=== PATIENT | female | born 1965 | race Caucasian/White ===

== ENCOUNTER → 2016-09-28 | Outpatient (CLI) | payer BC ==
[2014-01-04 11:16] VITALS: BP 135/87
[~2016-09-28] MED LIST: CYCL10TA2 PO; CYCL5TAB PO; FAMO40TA4 PO; FLUO40CA9 PO; HYDR-2762 PO; HYDR-971 PO; IBUP-1060 PO; LEVO75TA5 PO; MELO15TA23 PO
--- NOTE | 2016-09-28 16:12 | KCIC ---
LEFT ELBOW AP LATERAL Clinical Indication: Left elbow injury. Comparison: None. Findings: Sensitivity decreased without third view. There is no acute fracture or dislocation. No evidence of joint effusion. There is no radiopaque foreign body. The soft tissues are normal. IMPRESSION: No acute fracture or dislocation. Electronically signed by: Raheem Cook MD (09/28/2016 4:09 PM)
--- NOTE | 2016-09-28 16:19 | KCIC ---
ANKLE RIGHT 3V, FOOT RIGHT 3V Clinical Indication: Ankle and foot pain, swelling, and tingling after a fall 09/26. Comparison: None. Findings: Medial and lateral soft tissue swelling of the ankle. Ankle mortise is intact. There is no acute fracture. No joint effusion of the ankle seen. Pes cavus is noted. Mild dorsal soft tissue swelling. There is metatarsus primus varus and hallux valgus. Bipartite medial sesamoid. There is soft tissue swelling medial to the first MTP joint. Flattening of the medial first metatarsal head may be inflammatory or postsurgical. Question juxta-articular erosion. No acute fracture is identified. The mineralization is normal. IMPRESSION: 1. No acute fracture. 2. Medial and lateral ankle and dorsal foot soft tissue swelling. 3. Metatarsus primus varus and hallux valgus. 4. Soft tissue swelling medial to the first MTP joint. Gout in the differential. Electronically signed by: Raheem Cook MD (09/28/2016 4:16 PM)
== END | disposition home or self-care (01) ==
LOC: KCIC 14:08
PROVIDERS: ATTEND Family Medicine
DX: S99.911A Unspecified injury of right ankle, initial encounter (principal); S59.902A Unspecified injury of left elbow, initial encounter; M79.89 Other specified soft tissue disorders; X58.XXXA Exposure to other specified factors, initial encounter; Y93.89 Activity, other specified; Y92.89 Other specified places as the place of occurrence of the external cause; Y99.8 Other external cause status
CPT/HCPCS: 73070; 73610; 73630

== ENCOUNTER → 2017-01-17 | Outpatient (CLI) | payer BC ==
[2014-01-04 11:16] VITALS: BP 135/87
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
== END | disposition home or self-care (01) ==
LOC: KCIC 10:03
PROVIDERS: ATTEND Family Medicine
DX: S99.922A Unspecified injury of left foot, initial encounter (principal); X58.XXXA Exposure to other specified factors, initial encounter; Y93.89 Activity, other specified; Y92.89 Other specified places as the place of occurrence of the external cause; Y99.8 Other external cause status
CPT/HCPCS: 73630

== ENCOUNTER 2017-09-16 19:43 | Emergency (ER) | payer BC | END 2017-09-16 21:35 | disposition home or self-care (01) | LOC: ER 21:35 | DX: M13.862 Other specified arthritis, left knee (principal); K21.9 Gastro-esophageal reflux disease without esophagitis; E03.9 Hypothyroidism, unspecified; Z88.5 Allergy status to narcotic agent; Z88.8 Allergy status to other drugs, medicaments and biological substances; Z88.6 Allergy status to analgesic agent | CPT/HCPCS: 29505; 73562; 99284 ==

== ENCOUNTER → 2018-01-08 | Outpatient (CLI) | payer BC ==
[2017-09-16 19:45] VITALS: BP 120/77
[~2018-01-08] MED LIST changes: +CELE200C PO; +DULO30CA2 PO; +GABA600T PO; +LEVO88TA4 PO; +NORT25CA PO; +OMEP40CA5 PO; +TRAM50TA PO; +TRAZ-85 PO
[2018-01-08 10:23] LABS: BASO # 0.1 x10^3/uL (0.0-0.2); BASO % 1 % (0-3); EOS # 0.3 x10^3/uL (0.0-0.7); EOS % 4 % (0-3); HEMATOCRIT 41.7 % (36.0-47.0); HEMOGLOBIN 14.9 g/dL (12.0-15.5); LYMPH # 2.1 x10^3/uL (1.0-4.8); LYMPH % 28 % (24-48); MEAN CORPUSCULAR HEMOGLOBIN 33 pg (25-35); MEAN CORPUSCULAR HGB CONC 36 g/dL (31-37); MEAN CORPUSCULAR VOLUME 93 fL (79-100); MONO # 0.5 x10^3/uL (0.0-1.1); MONO % 6 % (0-9); NEUT # 4.5 x10^3uL (1.8-7.7); NEUT % 61 % (31-73); PLATELET COUNT 275 x10^3/uL (140-400); RED BLOOD COUNT 4.46 x10^6/uL (3.50-5.40); RED CELL DISTRIBUTION WIDTH 12.5 % (11.5-14.5); WHITE BLOOD COUNT 7.3 x10^3/uL (4.0-11.0)
[2018-01-08 10:29] LABS: CALCIUM 9.5 mg/dL (8.5-10.1); GFR 58.7; POTASSIUM 4.2 mmol/L (3.5-5.1)
[2018-01-08 10:37] LABS: PROTHROMBIN TIME PATIENT 12.6 SEC (11.7-14.0)
[2018-01-08 11:43] LABS: BILIRUBIN,URINE NEGATIVE (NEG); CLARITY,URINE CLEAR; COLOR,URINE YELLOW; NITRITE,URINE NEGATIVE (NEG); PH,URINE 6.5; PROTEIN,URINE NEGATIVE (NEG-TRACE); UROBILINOGEN,URINE 0.2 mg/dL (0.2 mg/dL)
[2018-01-08 12:06] LABS: BACTERIA,URINE 0 /HPF (0-FEW); RBC,URINE 0 /HPF (0-2); SQUAMOUS EPITHELIAL CELL,UR FEW /LPF; WBC,URINE 0 /HPF (0-4)
--- NOTE | 2018-01-08 13:38 | EKG ---
[facility] [address] [place] [address] Test Date: 2018-01-08 Test Time: 13:30:50 Pat Name: OMER BARRIENTOS Department: Room: Gender: F Skewer Up: : 1965 Requested By: STEFFI NICOLE Order Number: [id number] Reading MD: Wei Phillips MD Measurements Intervals [place] Rate: 83 P: 48 LA: 148 QRS: 24 QRSD: 90 T: 36 QT: 360 QTc: 429 Interpretive Statements SINUS RHYTHM Electronically Signed On 01-10-2018 12:02:16 CDT by Wei Phillips MD
--- NOTE | 2018-01-08 14:52 | RAD ---
AP and Lateral Views of the Chest 01/08/2018 2:05 PM Indication: PRE-OP CHEST LT KNEE SURGERY 01/30 Comparison: None Findings: There is no focal consolidation or infiltrate identified. The cardiomediastinal silhouette is within normal limits. There is no evidence of pneumothorax or pleural effusion. Postsurgical changes to the cervical spine noted. No acute osseous abnormalities are identified. Impression: No evidence of acute cardiopulmonary process. Electronically signed by: Trever Bravo MD (01/08/2018 2:49 PM) [id number]
== END | disposition home or self-care (01) ==
LOC: SURGPAT 13:08
PROVIDERS: ATTEND Orthopaedic Surgery
DX: Z01.818 Encounter for other preprocedural examination (principal); M17.12 Unilateral primary osteoarthritis, left knee
CPT/HCPCS: 36415; 71046; 80048; 81001; 82040; 85025; 85610; 85651; 85730; 87641; 93005

== ENCOUNTER 2018-01-30 06:50 | Inpatient (IN) | payer BC ==
[2018-01-30] VITALS (7 sets, daily range): BP systolic 110–140; BP diastolic 75–90
[~2018-01-30] VITALS: Ht 170.2 cm; Wt 97.5 kg
[~2018-01-30 06:50] MED LIST changes: +CELECOXIB 100 MG CAPSULE. PO PRN; +MORPHINE SULFATE 5 MG, KETOROLAC 30MG VIAL 30 MG, ROPIVacaine 0.5% PF 60 ML, EPINEPHrin... INT ART ONE; +TRANEXAMIC ACID 1,000 MG in IV NS 50ML -- 1ST BAG INJ ONE
[2018-01-30] MEDS: IV RINGERS,LACTATED 1000ML 1,000 ML IV SCH ×2 (07:30→15:28)
[2018-01-30] MEDS ORDERED: LIDOCAINE 1% PF 2 ML VIAL. ID PRN ×2 (07:30→09:30)
[2018-01-30] MEDS ORDERED: fentaNYL PF VIAL 100 MCG/2 ML VIAL IV PRN ×4 (07:30→10:30)
[2018-01-30] MEDS ORDERED: MIDAZOLAM HCL/PF 2 MG/2 ML VIAL. IV PRN (07:30)
[2018-01-30 07:59] LABS: PROTHROMBIN TIME PATIENT 12.8 SEC (11.7-14.0)
[2018-01-30] MEDS ORDERED: TRANEXAMIC ACID 1,000 MG in IV NS 50ML -- 2ND BAG INJ ONE (08:00)
[2018-01-30] MEDS ORDERED: PROPOFOL 20 ML IV ONE (09:15)
[2018-01-30] MEDS ORDERED: LIDOCAINE 2% PF Vial for OR 5 ML VIAL. ONE (09:15)
[2018-01-30] MEDS ORDERED: ROCURONIUM 50 MG/5 ML VIAL. ONE (09:15)
[2018-01-30] MEDS ORDERED: ONDANSETRON PF 4 MG/2 ML VIAL. ONE (09:15)
[2018-01-30] MEDS ORDERED: DEXAMETHASONE SOD PHOS 20 MG/5 ML VIAL. ONE (09:15)
[2018-01-30] MEDS ORDERED: fentaNYL PF VIAL 100 MCG/2 ML VIAL ONE ×4 (09:16→14:47)
[2018-01-30] MEDS ORDERED: MIDAZOLAM HCL/PF 2 MG/2 ML VIAL. ONE (09:16)
[2018-01-30] MEDS ORDERED: IV RINGERS,LACTATED 1000ML 1,000 ML IV SCH (09:22)
[2018-01-30] MEDS ORDERED: PROCHLORPERAZINE 10 MG/2 ML VIAL. IV PRN ×2 (09:30→10:30)
[2018-01-30] MEDS ORDERED: ONDANSETRON PF 4 MG/2 ML VIAL. IV PRN (09:30)
[2018-01-30] MEDS: IV DEXTROSE 5 %-0.45 % NACL 1,000 ML IV SCH ×2 (10:27→19:23)
[2018-01-30] MEDS ORDERED: 0.9 % SODIUM CHLORIDE 10 ML DISP.SYRIN. IV PRN (10:30)
[2018-01-30] MEDS ORDERED: traMADol 50 MG TABLET PO PRN ×2 (10:30)
[2018-01-30] MEDS ORDERED: DEXTROSE 50% 25 GM / 50ML DISP.SYRIN. IV PRN (10:30)
[2018-01-30] MEDS ORDERED: ZOLPIDEM 5 MG TABLET. PO PRN (10:30)
[2018-01-30] MEDS ORDERED: CALCIUM CARBONATE 500 MG TAB.CHEW PO PRN (10:30)
[2018-01-30] MEDS ORDERED: MORPHINE SULFATE 2 MG/ML VIAL. IV PRN (10:30)
[2018-01-30] MEDS ORDERED: HYDROmorphone 2 MG TABLET PO PRN (10:45)
[2018-01-30] MEDS ORDERED: HYDROmorphone 2 MG/ML VIAL IVP PRN (10:45)
[2018-01-30] MEDS ORDERED: SEVOFLURANE 61 TO 120 MINUTES. IH ONE (12:27)
[2018-01-30] MEDS ORDERED: NEOSTIGMINE METHYLSULFATE 5 MG/5 ML SYRINGE. ONE (12:27)
[2018-01-30] MEDS ORDERED: GLYCOPYRROLATE 1 MG/5 ML VIAL. ONE (12:27)
[2018-01-30] MEDS ORDERED: HYDROmorphone 2 MG/ML VIAL ONE (13:18)
--- NOTE | 2018-01-30 13:47 | PDOC4 ---
Operative Note Operative Note Date of surgery: 01/30/2018 Preoperative diagnosis: Degenerative joint disease left knee Postoperative diagnosis: Same Operative procedure: Left total knee arthroplasty Surgeon: Ryder Assist: Armand Anesthesia: Gen. Estimated blood loss: 10 mL Tourniquet time: 1 hour 35 minutes Complications: None Specimens: Cartilage surfaces to pathology Drains: Hemovac and pain catheter placed Operative indications:Herminia is a 52-year-old female with severe limiting left knee pain unresponsive to injections bracing activity modification and other nonoperative measures. She is very limited in her activities of daily living due to the left knee pain and wishes to proceed with definitive treatment. I had previously covered with her risks benefits postoperative course of total knee arthroplasty including the possibility of infection continued pain premature loosening nerve or blood vessel damage medical or other anesthetic consultations among others all her questions were answered and she agrees to proceed with surgical treatment in joint center admission to follow Operative text: Patient was identified procedure verified patient placed in supine position on the operating table. After adequate amounts of general anesthesia were administered left lower extremity was prepped and draped in standard sterile fashion with a thigh tourniquet. After timeout was performed patient procedure identified and verified the left lower extremity was exsanguinated by Esmarch bandage tourniquet inflated to 300 mmHg a midline incision was made a medial parapatellar approach carried out bleeding points controlled by electrocautery fat pad was excised after the patella was everted and femur was drilled intramedullary to accept intramedullary cutting guide standard distal cut was made and sizing carried out a size 5 cutting guide AP lateral and chamfer cuts were then made PCL was initially preserved tibial cutting extra medullary jig was then placed and a tibial cut was made gentle lateral release was performed with ligament balance tibia had to be recut to accommodate the lowest size spacer. Tibia was then drilled and broached initially a cruciate retaining femoral component was used however I felt that the PCL allowed too much motion and she was converted to a posterior stabilized construct. Excellent stability full range of motion good ligament balance were obtained patellofemoral tracking noted be normal after the patella was resurfaced with a 26 mm resurfacing component and lateral bone was trimmed away to avoid any impingement. Thorough irrigation was carried out normal saline solution bleeding points controlled by electrocautery especially in the capsular area and Lopez & Nephew components were cemented in place with polymethylmethacrylate cement as follows. A size 4 tibial component journey 2 a size 5 Oxinium posterior stabilized emerald component a 26 mm resurfacing polyethylene patella and temporarily 9 mm spacer was placed after excess cement was removed. Again thorough irrigation carried out normal saline solution and the trial spacer was exchanged for a 9 mm posterior stabilized polyethylene component Hemovac drain and pain catheter were placed pain catheter mixture was injected throughout the joint capsule closure of the retinaculum carried out with #2 Ethibond suture and a #1 PDS strata fix suture subcutaneous closure with buried Vicryl suture skin closure with 30 strata fix Monocryl a aleja drain was placed patient was returned to recovery room in stable condition having tolerated procedure well. Toes were noted be warm pink find deflation of tourniquet. Armand castillo assisted in the prepping draping retraction and skin closure STEFFI NICOLE MD Jan 30, 2018 13:47
[2018-01-30] MEDS: fentaNYL PF VIAL 100 MCG/2 ML VIAL IV PRN ×5 (14:23→15:43)
--- NOTE | 2018-01-30 14:37 | RAD ---
KNEE LEFT 2V Clinical Indication: POST OP LEFT KNEE REPLACEMENT Comparison: None. Findings: AP and crosstable lateral views. There has been total knee arthroplasty. The alignment appears anatomic. There has been resurfacing of the patella. No periprosthesis fracture is identified. There is probably mild joint fluid. Surgical drain is in place. There is scattered subcutaneous air. IMPRESSION: Post total knee arthroplasty, no acute complication radiographically. Electronically signed by: Raheem Cook MD (01/30/2018 2:33 PM) [id number]
[2018-01-30] MEDS ORDERED: WARFARIN 7.5 MG TABLET. PO ONE (16:00)
[2018-01-30] MEDS: FERROUS SULFATE 325 MG TABLET. PO SCH (16:30)
[2018-01-30] MEDS: GABAPENTIN 300 MG CAPSULE. PO SCH (16:30)
[2018-01-30] MEDS: KETOROLAC 30MG VIAL 30 MG, BUPIVACAINE MPF 0.25% 20 ML, EPINEPHrine 0.5 MG in TOTAL VOL... INT ART SCH (17:55)
[2018-01-30] MEDS: CYCLOBENZAPRINE 10 MG TABLET. PO PRN (19:22)
[2018-01-30] MEDS: NORTRIPTYLINE 25 MG CAPSULE PO SCH (21:02)
[2018-01-30] MEDS: CELECOXIB 100 MG CAPSULE. PO SCH (21:02)
[2018-01-30] MEDS: traZODone 50 MG TABLET. PO SCH (21:02)
[2018-01-30] MEDS: DULoxetine HCL 30 MG CAPSULE.DR PO SCH (21:02)
[2018-01-31 03:11] VITALS: BP 98/62
[2018-01-31 05:37] LABS: HEMATOCRIT 32.8 % (36.0-47.0); HEMOGLOBIN 11.3 g/dL (12.0-15.5)
[2018-01-31] MEDS: KETOROLAC 30MG VIAL 30 MG, BUPIVACAINE MPF 0.25% 20 ML, EPINEPHrine 0.5 MG in TOTAL VOL... INT ART SCH (05:38)
[2018-01-31 05:46] LABS: PROTHROMBIN TIME PATIENT 14.3 SEC (11.7-14.0)
[2018-01-31 05:47] VITALS: BP 96/67
[2018-01-31] MEDS ORDERED: MAGNESIUM HYDROXIDE 2,400 MG/30 ML ORAL.SUSP. PO PRN (06:00)
[2018-01-31] MEDS: IV DEXTROSE 5 %-0.45 % NACL 1,000 ML IV SCH ×2 (06:27→15:39)
[2018-01-31] MEDS: LEVOTHYROXINE 88 MCG TABLET PO SCH (07:03)
[2018-01-31] MEDS: PANTOPRAZOLE 40 MG TABLET.DR. PO SCH (07:04)
--- NOTE | 2018-01-31 07:37 | PDOC ---
ORTHO PROGRESS NOTES Subjective Patient states pain rated at 2-3 this morning. Post-op Day: 1 Procedure L TKA Vitals Vital Signs Date Time Temp Pulse Resp B/P (MAP) Pulse Ox O2 Delivery O2 Flow Rate FiO2 01/31/18 05:47 97.5 82 18 96/67 (77) 98 Room Air 97.5 01/30/18 15:19 2.0 Labs Laboratory Tests Test 01/30/18 07:37 01/31/18 04:05 01/31/18 04:55 Prothrombin Time 12.8 SEC (11.7-14.0) 14.3 SEC (11.7-14.0) Prothromb Time International Ratio 1.0 (0.8-1.1) 1.2 (0.8-1.1) Activated Partial Thromboplast Time 27 SEC (24-38) Hemoglobin 11.3 g/dL (12.0-15.5) Hematocrit 32.8 % (36.0-47.0) Mean Corpuscular Hemoglobin Concent 35 g/dL (31-37) Laboratory Tests Test 01/30/18 07:37 01/31/18 04:05 01/31/18 04:55 Prothrombin Time 12.8 SEC (11.7-14.0) 14.3 SEC (11.7-14.0) Prothromb Time International Ratio 1.0 (0.8-1.1) 1.2 (0.8-1.1) Activated Partial Thromboplast Time 27 SEC (24-38) Hemoglobin 11.3 g/dL (12.0-15.5) Hematocrit 32.8 % (36.0-47.0) Mean Corpuscular Hemoglobin Concent 35 g/dL (31-37) Assessment and Plan N/V intact distally dressing dry and intact moving lower extremities well. PT this morning BRENDAN CHAVEZ APRN Jan 31, 2018 07:37
[2018-01-31] MEDS: MULTIVITAMIN with MINERAL TABLET. PO SCH (08:44)
[2018-01-31] MEDS: GABAPENTIN 300 MG CAPSULE. PO SCH ×3 (08:44→20:43)
[2018-01-31] MEDS: DULoxetine HCL 30 MG CAPSULE.DR PO SCH ×2 (08:45→20:44)
[2018-01-31] MEDS: SENNOSIDES/DOCUSATE 8.6/50MG TABLET. PO SCH (08:45)
[2018-01-31] MEDS: FERROUS SULFATE 325 MG TABLET. PO SCH ×2 (08:45→16:58)
[2018-01-31] MEDS: oxyCODONE/APAP 5/325 1 TAB TABLET PO PRN ×3 (08:46→17:00)
[2018-01-31] MEDS: CELECOXIB 100 MG CAPSULE. PO SCH ×2 (08:46→20:44)
--- NOTE | 2018-01-31 15:06 | PDOC ---
PROGRESS NOTES Subjective Subjective Problems overnight: Pain controlled reasonable ambulation minimal complaints Objective Vital Signs Vital Signs Date Time Temp Pulse Resp B/P (MAP) Pulse Ox O2 Delivery O2 Flow Rate FiO2 01/31/18 12:39 20 01/31/18 09:45 98 Room Air 01/31/18 05:47 97.5 82 96/67 (77) 97.5 01/30/18 15:19 2.0 Physical Exam On exam aleja dressing clean dry intact excellent early motion stability distal neurovascular status intact Labs Laboratory Tests Test 01/30/18 07:37 01/31/18 04:05 01/31/18 04:55 Prothrombin Time 12.8 SEC (11.7-14.0) 14.3 SEC (11.7-14.0) Prothromb Time International Ratio 1.0 (0.8-1.1) 1.2 (0.8-1.1) Activated Partial Thromboplast Time 27 SEC (24-38) Hemoglobin 11.3 g/dL (12.0-15.5) Hematocrit 32.8 % (36.0-47.0) Mean Corpuscular Hemoglobin Concent 35 g/dL (31-37) Laboratory Tests Test 01/31/18 04:05 01/31/18 04:55 Prothrombin Time 14.3 SEC (11.7-14.0) Prothromb Time International Ratio 1.2 (0.8-1.1) Hemoglobin 11.3 g/dL (12.0-15.5) Hematocrit 32.8 % (36.0-47.0) Mean Corpuscular Hemoglobin Concent 35 g/dL (31-37) Imaging O stop x-rays show total knee arthroplasty in good alignment Assessment Assessment POD# [1], S/P [left total knee arthroplasty] Plan Plan of Care Mobilize weightbearing as tolerated standard total knee protocol Coumadin anticoagulation STEFFI NICOLE MD Jan 31, 2018 15:06
[2018-01-31] MEDS: MORPHINE SULFATE 4 MG/ML VIAL. IV PRN (15:41)
[2018-01-31] MEDS ORDERED: BISACODYL 10 MG SUPP.RECT. PR PRN (16:00)
[2018-01-31] MEDS ORDERED: WARFARIN 5 MG TABLET. PO ONE (16:00)
[2018-01-31 18:10] VITALS: BP 108/72
[2018-01-31] MEDS: CYCLOBENZAPRINE 10 MG TABLET. PO PRN (19:18)
[2018-01-31] MEDS: oxyCODONE/APAP 7.5/325 1 TAB TABLET PO PRN ×2 (20:03→23:30)
[2018-01-31] MEDS: traZODone 50 MG TABLET. PO SCH (20:44)
[2018-01-31] MEDS: NORTRIPTYLINE 25 MG CAPSULE PO SCH (20:44)
[2018-01-31] MEDS: fentaNYL PF VIAL 100 MCG/2 ML VIAL IV PRN (22:16)
[2018-02-01] MEDS: oxyCODONE/APAP 7.5/325 1 TAB TABLET PO PRN ×6 (03:57→21:45)
[2018-02-01 06:10] VITALS: BP 116/62
[2018-02-01] MEDS: CYCLOBENZAPRINE 10 MG TABLET. PO PRN ×3 (06:44→16:15)
[2018-02-01] MEDS: LEVOTHYROXINE 88 MCG TABLET PO SCH (06:57)
[2018-02-01] MEDS: PANTOPRAZOLE 40 MG TABLET.DR. PO SCH (06:57)
[2018-02-01 07:10] LABS: HEMATOCRIT 33.3 % (36.0-47.0); HEMOGLOBIN 11.6 g/dL (12.0-15.5)
[2018-02-01 07:33] LABS: PROTHROMBIN TIME PATIENT 15.6 SEC (11.7-14.0)
[2018-02-01] MEDS: SENNOSIDES/DOCUSATE 8.6/50MG TABLET. PO SCH (08:52)
[2018-02-01] MEDS: MULTIVITAMIN with MINERAL TABLET. PO SCH (08:52)
[2018-02-01] MEDS: CELECOXIB 100 MG CAPSULE. PO SCH ×2 (08:52→21:43)
[2018-02-01] MEDS: GABAPENTIN 300 MG CAPSULE. PO SCH ×4 (08:52→21:44)
[2018-02-01] MEDS: FERROUS SULFATE 325 MG TABLET. PO SCH ×2 (08:52→16:14)
[2018-02-01] MEDS: MORPHINE SULFATE 4 MG/ML VIAL. IV PRN (08:52)
[2018-02-01] MEDS: DULoxetine HCL 30 MG CAPSULE.DR PO SCH ×2 (08:53→21:44)
--- NOTE | 2018-02-01 16:09 | PATHOLOGY ---
[facility] Accession Number: [id number] . 01 Material submitted: . LEFT KNEE AND BONE TISSUE . 01 Clinician provided ICD-10: M17.12 . 01 Clinical history: . None provided . 02 Diagnosis: Bone, left knee, removal: - Degenerative osteoarthritis. . (SKM:vjm;02/01/2018) AGA/02/01/2018 . 02 Electronically signed: . Storm Krishnamurthy MD, Pathologist NPI- [id number] . 01 Gross description: . The specimen is received in formalin, labeled "Herminia PlantSanders, L knee bone and tissue". Received are multiple segments of light finley bone, including the tibial plateau, measuring 9.6 x 7.8 x 2.9 cm in aggregate dimensions admixed with soft tissue. Meniscus is absent. The articulating surfaces are pale finley in appearance with evidence of eburnation. The specimen is submitted representatively in cassette A1, following decalcification. (CAA; 01/31/2018) QAC/QAC . 02 Pathologist provided ICD-10: M17.12 . 02 CPT . 671380, [id number] Specimen Comment: A courtesy copy of this report has been sent to Specimen Comment: [phone], . Specimen Comment: Report sent to / DR BARBOSA Performed at: 01 [facility] [address] [facility] [address], [place] [id number] MD Jarrett Loya MD Phone: [phone] Performed at: 02 [facility] [address], [place] [id number] MD Kvng Burgess MD Phone: [phone]
[2018-02-01] MEDS ORDERED: WARFARIN 5 MG TABLET. PO ONE (16:30)
[2018-02-01 18:14] VITALS: BP 109/65
[2018-02-01] MEDS: NORTRIPTYLINE 25 MG CAPSULE PO SCH (21:43)
[2018-02-01] MEDS: traZODone 50 MG TABLET. PO SCH (21:44)
[2018-02-01] MEDS: fentaNYL PF VIAL 100 MCG/2 ML VIAL IV PRN (22:45)
[2018-02-02 06:00] VITALS: BP 109/59
[2018-02-02 06:57] LABS: HEMOGLOBIN 10.9 g/dL (12.0-15.5)
[2018-02-02 07:15] LABS: PROTHROMBIN TIME PATIENT 15.4 SEC (11.7-14.0)
[2018-02-02] MEDS: CELECOXIB 100 MG CAPSULE. PO SCH ×2 (08:25→21:11)
[2018-02-02] MEDS: PANTOPRAZOLE 40 MG TABLET.DR. PO SCH (08:26)
[2018-02-02] MEDS: oxyCODONE/APAP 7.5/325 1 TAB TABLET PO PRN ×5 (08:26→21:13)
[2018-02-02] MEDS: DULoxetine HCL 30 MG CAPSULE.DR PO SCH ×2 (08:26→21:11)
[2018-02-02] MEDS: FERROUS SULFATE 325 MG TABLET. PO SCH ×2 (08:26→14:49)
[2018-02-02] MEDS: LEVOTHYROXINE 88 MCG TABLET PO SCH (08:26)
[2018-02-02] MEDS: SENNOSIDES/DOCUSATE 8.6/50MG TABLET. PO SCH (08:26)
[2018-02-02] MEDS: MULTIVITAMIN with MINERAL TABLET. PO SCH (08:26)
[2018-02-02] MEDS: GABAPENTIN 300 MG CAPSULE. PO SCH ×2 (08:26→14:49)
[2018-02-02] MEDS: CYCLOBENZAPRINE 10 MG TABLET. PO PRN ×2 (12:10→21:11)
[2018-02-02 12:57] VITALS: BP 125/76
[2018-02-02] MEDS ORDERED: WARFARIN 4 MG TABLET. PO ONE (15:00)
[2018-02-02 19:00] VITALS: BP 112/59
[2018-02-02] MEDS: traZODone 50 MG TABLET. PO SCH (21:11)
[2018-02-02] MEDS: NORTRIPTYLINE 25 MG CAPSULE PO SCH (21:11)
[2018-02-02 23:00] VITALS: BP 112/54
--- NOTE | 2018-02-03 02:14 | RAD ---
Left Lower Extremity Venous Doppler Ultrasound History: pain Comparison: None Procedure: Color flow, duplex, spectral analysis and 2D images are obtained with and without compression in the area of the common femoral vein, superficial femoral vein - femoral vein junction, main femoral vein (superficial femoral vein) and popliteal vein. Veins of the proximal calf are also imaged. Findings: There is normal duplex flow, color flow and compressibility of all visualized vein segments. No evidence of deep venous thrombus is present. There is soft tissue edema. Impression: No evidence of DVT. Electronically signed by: Harshal Browning III, MD (02/03/2018 2:11 AM) [email or web address]
[2018-02-03 03:00] VITALS: BP 93/54
[2018-02-03 06:07] LABS: PROTHROMBIN TIME PATIENT 15.7 SEC (11.7-14.0)
[2018-02-03 06:37] LABS: BASO % 1 % (0-3); EOS # 0.3 x10^3/uL (0.0-0.7); EOS % 3 % (0-3); HEMATOCRIT 28.9 % (36.0-47.0); HEMOGLOBIN 10.1 g/dL (12.0-15.5); LYMPH # 1.4 x10^3/uL (1.0-4.8); LYMPH % 17 % (24-48); MEAN CORPUSCULAR HEMOGLOBIN 32 pg (25-35); MEAN CORPUSCULAR HGB CONC 35 g/dL (31-37); MEAN CORPUSCULAR VOLUME 93 fL (79-100); MONO # 0.6 x10^3/uL (0.0-1.1); MONO % 7 % (0-9); NEUT # 6.2 x10^3uL (1.8-7.7); NEUT % 73 % (31-73); PLATELET COUNT 257 x10^3/uL (140-400); RED BLOOD COUNT 3.11 x10^6/uL (3.50-5.40); RED CELL DISTRIBUTION WIDTH 12.2 % (11.5-14.5); WHITE BLOOD COUNT 8.6 x10^3/uL (4.0-11.0)
[2018-02-03] MEDS: ceFAZolin SODIUM 1 GM in IV DEXTROSE 5% 50 ML IV SCH ×3 (06:37→22:32)
[2018-02-03] MEDS: LEVOTHYROXINE 88 MCG TABLET PO SCH (06:38)
[2018-02-03] MEDS: PANTOPRAZOLE 40 MG TABLET.DR. PO SCH (06:38)
[2018-02-03 07:32] VITALS: BP 115/70
[2018-02-03] MEDS: CYCLOBENZAPRINE 10 MG TABLET. PO PRN ×2 (07:36→13:49)
[2018-02-03] MEDS: oxyCODONE/APAP 7.5/325 1 TAB TABLET PO PRN ×3 (07:36→19:03)
[2018-02-03] MEDS: FERROUS SULFATE 325 MG TABLET. PO SCH ×2 (09:02→17:20)
[2018-02-03] MEDS: SENNOSIDES/DOCUSATE 8.6/50MG TABLET. PO SCH (09:03)
[2018-02-03] MEDS: GABAPENTIN 300 MG CAPSULE. PO SCH ×3 (09:03→20:32)
[2018-02-03] MEDS: CELECOXIB 100 MG CAPSULE. PO SCH ×2 (09:03→20:32)
[2018-02-03] MEDS: MULTIVITAMIN with MINERAL TABLET. PO SCH (09:03)
[2018-02-03] MEDS: DULoxetine HCL 30 MG CAPSULE.DR PO SCH ×2 (09:04→20:32)
--- NOTE | 2018-02-03 09:04 | DISCH ---
DISCHARGE INSTRUCTIONS Condition on Discharge Condition on Discharge: Stable Activity After Discharge Activity Instructions for Disc: Walk in house Other activity instructions: use walker until released by therapist Bathing Instructions: Shower-keep dressing dry, No Tub Bath until see Lifting Instructions after Dis: No heavy lifting, No pulling or pushing, Do not lift >10 pounds Exercise Instruction after Dis: Exercise per therapy Driving Instructions after Dis: Do not drive Weight Bearing Status after Di: No restrictions, Full weight bearing, As tolerated Diet after Discharge Diet after Discharge: Regular Diet Texture: Regular Liquid Texture: Thin Liquid Swallowing Supervision: None needed Wound Incision Care Wound/Incision Care: Ice to area for comfort, Keep wound/cast CDI, Keep wound elevated, Do not change dressing Other wound/incision instructi: remove battery pack on Feb.06; cut tubing 4" from bubble ; tape downwards Wound Care Equipment: Dressings Checks after Discharge DC Comment: increase fruits, vegetables and fiber; attempt BM every 2-3 days Community/Resources/Services Services at Discharge: PT EVALUATE & TREAT, OT Evaluate & Treat, RN Services Contacting the after DC Call your doctor for: Concerns you may have Follow-Up Follow up with: Ryder in 2 wks Treatment/Equipment after DC Adaptive Equipment Issued: None Warfarin Follow-Up Warfarin Follow UP: per Pharmacy JUAN JOSE SUGGS II, MD Feb 03, 2018 09:04
--- NOTE | 2018-02-03 09:07 | PDOC ---
ORTHO PROGRESS NOTES Subjective Pain tolerable, some new swelling around her knee. No bowel/breathing complaints Vitals Vital Signs Date Time Temp Pulse Resp B/P (MAP) Pulse Ox O2 Delivery O2 Flow Rate FiO2 02/03/18 07:36 99 Room Air 3.0 02/03/18 07:32 97.9 95 18 115/70 (85) 97.9 Labs Laboratory Tests Test 02/02/18 06:20 02/03/18 03:50 Hemoglobin 10.9 g/dL (12.0-15.5) 10.1 g/dL (12.0-15.5) Hematocrit 31.0 % (36.0-47.0) 28.9 % (36.0-47.0) Mean Corpuscular Hemoglobin Concent 35 g/dL (31-37) 35 g/dL (31-37) Prothrombin Time 15.4 SEC (11.7-14.0) 15.7 SEC (11.7-14.0) Prothromb Time International Ratio 1.3 (0.8-1.1) 1.3 (0.8-1.1) White Blood Count 8.6 x10^3/uL (4.0-11.0) Red Blood Count 3.11 x10^6/uL (3.50-5.40) Mean Corpuscular Volume 93 fL (79-100) Mean Corpuscular Hemoglobin 32 pg (25-35) Red Cell Distribution Width 12.2 % (11.5-14.5) Platelet Count 257 x10^3/uL (140-400) Neutrophils (%) (Auto) 73 % (31-73) Lymphocytes (%) (Auto) 17 % (24-48) Monocytes (%) (Auto) 7 % (0-9) Eosinophils (%) (Auto) 3 % (0-3) Basophils (%) (Auto) 1 % (0-3) Neutrophils # (Auto) 6.2 x10^3uL (1.8-7.7) Lymphocytes # (Auto) 1.4 x10^3/uL (1.0-4.8) Monocytes # (Auto) 0.6 x10^3/uL (0.0-1.1) Eosinophils # (Auto) 0.3 x10^3/uL (0.0-0.7) Basophils # (Auto) 0.0 x10^3/uL (0.0-0.2) Laboratory Tests Test 02/03/18 03:50 White Blood Count 8.6 x10^3/uL (4.0-11.0) Red Blood Count 3.11 x10^6/uL (3.50-5.40) Hemoglobin 10.1 g/dL (12.0-15.5) Hematocrit 28.9 % (36.0-47.0) Mean Corpuscular Volume 93 fL (79-100) Mean Corpuscular Hemoglobin 32 pg (25-35) Mean Corpuscular Hemoglobin Concent 35 g/dL (31-37) Red Cell Distribution Width 12.2 % (11.5-14.5) Platelet Count 257 x10^3/uL (140-400) Neutrophils (%) (Auto) 73 % (31-73) Lymphocytes (%) (Auto) 17 % (24-48) Monocytes (%) (Auto) 7 % (0-9) Eosinophils (%) (Auto) 3 % (0-3) Basophils (%) (Auto) 1 % (0-3) Neutrophils # (Auto) 6.2 x10^3uL (1.8-7.7) Lymphocytes # (Auto) 1.4 x10^3/uL (1.0-4.8) Monocytes # (Auto) 0.6 x10^3/uL (0.0-1.1) Eosinophils # (Auto) 0.3 x10^3/uL (0.0-0.7) Basophils # (Auto) 0.0 x10^3/uL (0.0-0.2) Prothrombin Time 15.7 SEC (11.7-14.0) Prothromb Time International Ratio 1.3 (0.8-1.1) Notes A and A in bed LLE: GERRI intact, some bloody drainage present edema/effusion around knee normal motor and sensation distally Assessment and Plan cont anticoag, PT/OT awaiting placement, ok to D/C once bed available JUAN JOSE SUGGS II, MD Feb 03, 2018 09:07
[2018-02-03] MEDS ORDERED: WARFARIN 5 MG TABLET. PO ONE (16:00)
[2018-02-03 16:39] VITALS: BP 123/61
[2018-02-03 19:00] VITALS: BP 120/66
[2018-02-03] MEDS: LACTOBACILLUS RHAMNOSUS GG 1 CAPSULE. PO SCH (20:32)
[2018-02-03] MEDS: fentaNYL PF VIAL 100 MCG/2 ML VIAL IV PRN (20:33)
[2018-02-03] MEDS: NORTRIPTYLINE 25 MG CAPSULE PO SCH (20:33)
[2018-02-03] MEDS: traZODone 50 MG TABLET. PO SCH (22:31)
[2018-02-03 23:00] VITALS: BP 107/48
[2018-02-04 03:00] VITALS: BP 93/44
[2018-02-04] MEDS: ceFAZolin SODIUM 1 GM in IV DEXTROSE 5% 50 ML IV SCH ×2 (05:23→14:00)
[2018-02-04] MEDS: PANTOPRAZOLE 40 MG TABLET.DR. PO SCH (05:26)
[2018-02-04] MEDS: LEVOTHYROXINE 88 MCG TABLET PO SCH (05:33)
[2018-02-04 05:57] LABS: PROTHROMBIN TIME PATIENT 16.6 SEC (11.7-14.0)
[2018-02-04 07:00] VITALS: BP 98/60
[2018-02-04] MEDS: CYCLOBENZAPRINE 10 MG TABLET. PO PRN (08:15)
[2018-02-04] MEDS: oxyCODONE/APAP 7.5/325 1 TAB TABLET PO PRN ×2 (08:15→12:35)
[2018-02-04] MEDS: SENNOSIDES/DOCUSATE 8.6/50MG TABLET. PO SCH (08:16)
[2018-02-04] MEDS: DULoxetine HCL 30 MG CAPSULE.DR PO SCH (08:16)
[2018-02-04] MEDS: CELECOXIB 100 MG CAPSULE. PO SCH (08:16)
[2018-02-04] MEDS: MULTIVITAMIN with MINERAL TABLET. PO SCH (08:16)
[2018-02-04] MEDS: GABAPENTIN 300 MG CAPSULE. PO SCH ×2 (08:16→14:27)
[2018-02-04] MEDS: FERROUS SULFATE 325 MG TABLET. PO SCH (08:17)
[2018-02-04] MEDS: LACTOBACILLUS RHAMNOSUS GG 1 CAPSULE. PO SCH (08:17)
--- NOTE | 2018-02-04 08:20 | PDOC ---
ORTHO PROGRESS NOTES Subjective Feels ready for a pain pill, otherwise doing ok Vitals Vital Signs Date Time Temp Pulse Resp B/P (MAP) Pulse Ox O2 Delivery O2 Flow Rate FiO2 02/04/18 08:15 20 Room Air 02/04/18 03:00 97.7 74 93/44 (60) 98 97.7 02/03/18 07:36 3.0 Labs Laboratory Tests Test 02/03/18 03:50 02/04/18 05:00 White Blood Count 8.6 x10^3/uL (4.0-11.0) Red Blood Count 3.11 x10^6/uL (3.50-5.40) Hemoglobin 10.1 g/dL (12.0-15.5) Hematocrit 28.9 % (36.0-47.0) Mean Corpuscular Volume 93 fL (79-100) Mean Corpuscular Hemoglobin 32 pg (25-35) Mean Corpuscular Hemoglobin Concent 35 g/dL (31-37) Red Cell Distribution Width 12.2 % (11.5-14.5) Platelet Count 257 x10^3/uL (140-400) Neutrophils (%) (Auto) 73 % (31-73) Lymphocytes (%) (Auto) 17 % (24-48) Monocytes (%) (Auto) 7 % (0-9) Eosinophils (%) (Auto) 3 % (0-3) Basophils (%) (Auto) 1 % (0-3) Neutrophils # (Auto) 6.2 x10^3uL (1.8-7.7) Lymphocytes # (Auto) 1.4 x10^3/uL (1.0-4.8) Monocytes # (Auto) 0.6 x10^3/uL (0.0-1.1) Eosinophils # (Auto) 0.3 x10^3/uL (0.0-0.7) Basophils # (Auto) 0.0 x10^3/uL (0.0-0.2) Prothrombin Time 15.7 SEC (11.7-14.0) 16.6 SEC (11.7-14.0) Prothromb Time International Ratio 1.3 (0.8-1.1) 1.4 (0.8-1.1) Laboratory Tests Test 02/04/18 05:00 Prothrombin Time 16.6 SEC (11.7-14.0) Prothromb Time International Ratio 1.4 (0.8-1.1) Notes A and A in bed dressing intact, no new drainage remains NVI LLE gentle compression in place to LLE Assessment and Plan PT/OT coumadin awaiting placement JUAN JOSE SUGGS II, MD Feb 04, 2018 08:20
[2018-02-04] MEDS ORDERED: WARFARIN 5 MG TABLET. PO ONE (14:00)
--- NOTE | 2018-02-04 15:52 | DISCH ---
DISCHARGE WITH HOME HEALTH DISCHARGE INFORMATION: Discharge Date: Feb 04, 2018 Final Diagnosis: Advanced left knee primary DJD Condition on Discharge: Stable CODE STATUS: Code Status: Full HOME HEALTH: Face to Face: I certify this patient is under my care and that I, or a nurse practitioner or physician's academic assistant working with me, had a face to face encounter that meets the physician face to face encounter requirements with this patient on []. Medical Complications: S/P Joint Replacement Nursing Home For: Admin/Educate Injections Physical Therapy For: Evalulation/Treatment Occupational Therapy For: Evaluation/Treatment Pt Meets Homebound Status: Poor coordination w/ amb., Unsteady balance w/ amb, POST DISCHARGE ORDERS: Activity Instructions for Disc: Activity as tolerated Weight Bearing Status after Di: As tolerated Bathing Instructions: No Tub Bath until see Wound/Incision Care: Ice to area for comfort, Do not change dressing Other wound/incision instructi: Keep GERRI dressing in place until instructed to remove it FOLLOW-UP: Follow up with: surgeon in 2 weeks Follow Up With: primary care doctor in 2 weeks. Warfarin Follow UP: have PT/INR drawn at the hospital on 02/07/18 TREATMENT/EQUIPMENT ORDERS: Adaptive Equipment Issued: None CERTIFICATION STATEMENT: Certification Statement: Certification Statement: Based on the above finding, I certify that this patient is confined to the home and needs intermittent intermediate care, physical therapy and/or speech therapy, or continues to need occupational therapy.~ This patient is under my care, and I have initiated the establishment of the plan of care.~ This patient will be followed by myself or a community physician who will periodically review the plan of care. Home Meds Reported Medications Omeprazole (OMEPRAZOLE) 40 Mg Capsule.dr, 40 MG PO DAILY, CAP 01/08/18 Trazodone Hcl (TRAZODONE HCL) 50 Mg Tablet, 50 MG PO HS, TAB 01/08/18 Celecoxib (CELEBREX) 200 Mg Capsule, 400 MG PO DAILY for 30 Days, #60 CAP 0 Refills 01/08/18 Duloxetine Hcl (CYMBALTA) 30 Mg Capsule.dr, 30 MG PO BID, CAP 01/08/18 Gabapentin (NEURONTIN) 600 Mg Tablet, 600 MG PO TID, TAB 01/08/18 Nortriptyline Hcl (NORTRIPTYLINE HCL) 25 Mg Capsule, 50 MG PO HS, CAP 01/08/18 Levothyroxine Sodium (LEVOTHYROXINE SODIUM) 88 Mcg Tablet, 88 MCG PO DAILYAC for THYROID SUPPLEMENT, #30 TAB 0 Refills 01/08/18 Discontinued Reported Medications Tramadol Hcl (TRAMADOL HCL) 50 Mg Tablet, 50 MG PO Q6HRS PRN for PAIN, TAB 01/08/18 JUAN JOSE SUGGS II, MD Feb 04, 2018 15:52
== END 2018-02-04 15:36 | disposition home health service (06) | DRG 470 ==
LOC: OPSVCIP 06:50 → 4 SOUTHEST 15:28 → 4 NORTH 02-02 17:48
PROVIDERS: ADMIT Orthopaedic Surgery; ATTEND Orthopaedic Surgery
PROC: 0SRD069 Replacement of Left Knee Joint with Oxidized Zirconium on Polyethylene Synthetic Substitute, Cemented, Open Approach (ICD-10-PCS; principal; 2018-01-30 10:15)
DX: M17.12 Unilateral primary osteoarthritis, left knee (principal)
CPT/HCPCS: 36415; 73560; 85014; 85018; 85025; 85610; 85730; 86850; 86900; 86901; 88305; 88311; 90471; 90756; 93971; A7015; C1713; J0171; J0690; J1100; J1170; J1885; J2001; J2250; J2270; J2405; J2704; J2710; J2795; J3010; J3490; J7030; J7120; 97110; 97116; 97150; 97530; 97535; C1769; Q2035

== ENCOUNTER → 2018-08-16 | Outpatient (CLI) | payer BC ==
[~2018-08-16] MED LIST changes: -CELECOXIB 100 MG CAPSULE. PO PRN; -HYDR-2762 PO; +HYDR-2765 PO; +HYDR-3164 PO; -HYDR-971 PO; -MORPHINE SULFATE 5 MG, KETOROLAC 30MG VIAL 30 MG, ROPIVacaine 0.5% PF 60 ML, EPINEPHrin... INT ART ONE; -TRANEXAMIC ACID 1,000 MG in IV NS 50ML -- 1ST BAG INJ ONE; +TRAZ-118 PO; -TRAZ-85 PO
--- NOTE | 2018-08-16 12:40 | KCIC ---
MRI Lumbar Spine without contrast History: Lumbar radiculopathy, low back pain into the right hip and leg Technique: Multiplanar, multi sequential noncontrast MR imaging was performed of the lumbar spine. Comparison: August 28, 2014 Findings: There is motion degradation variably for all image sequences. Lumbar vertebral body stature is overall unchanged. There is again hemangioma of the L1 vertebral body. There is again minimal posterior subluxation L3 relative to L4 and L4 relative to L5. There is again advanced degenerative disc disease L3-4 through L5-S1 and to a lesser degree at L2-3, minimally L1-2. There is multilevel variable degenerative endplate change greatest L3-4 and L5-S1, also endplate edema greatest L3-4 and L5-S1 probably reactive/degenerative in etiology. Conus terminates near L1-2. 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 There is very mild levoscoliosis. L1-L2: There is again minimal disc osteophyte complex and bulge. Neural foramina and spinal canal are adequate. There is minimal facet degenerative change and buckling of the ligamentum flavum. L2-L3: Spinal canal and neural foramina are adequate. There is again negligible posterior bulge. L3-L4: There is again disc osteophyte complex and bulge, also shallow protrusion in the far right lateral recess. There is similar degree of mild indentation upon the ventral thecal sac greater in the far right lateral recess, similar mild narrowing of the far right lateral recess near descending right L4 nerve root. There is again mild bilateral facet hypertrophic change. Neural foramina are overall adequate. Shallow protrusion is near the extraforaminal right L3 nerve root without significant displacement. L4-L5: There is again minimal disc osteophyte complex and bulge, mild indentation upon the ventral thecal sac greater left lateral recess. There again may be a very small extrusion extending below the intervertebral disc space in the far left lateral recess. There is very minimal narrowing of the far left lateral recess as seen previously. There is mild facet degenerative change. There is minimal narrowing of the inferior distal left neural foramen by disc osteophyte complex, right neural foramen overall adequate. L5-S1: There is again shallow broad protrusion without significant impingement of the descending S1 nerve roots. There is mild buckling of the ligamentum flavum and facet hypertrophic change. There is new suspected small extrusion extending above the intervertebral disc space in the distal right neural foramen and proximal extraforaminal region estimated about 5 to 6 mm CC by 4 to 5 mm AP by about 7 mm transverse. There is increased moderate narrowing of the distal right neural foramen with contact of the exiting right L5 nerve root, again degree of inferior narrowing by disc osteophyte complex and shallow protrusion. There is mild inferior narrowing of the left neural foramen. Impression: 1. Comparing with the 2015 exam, there is now small extrusion extending above the intervertebral disc space in the distal right L5-S1 neural foramen and proximal extraforaminal region with increased moderate narrowing of the right neural foramen greater distally and contact exiting right L5 nerve root. Other findings are fairly similar as described. There is again degenerative disc disease greatest L3-4 to L5-S1, multilevel mild spondylosis. There is no new significant lumbar spinal stenosis, very mild narrowing of the far right lateral recess at L3-4 and left lateral recess at L4-5. Electronically signed by: Pratik Rucker MD (08/16/2018 12:37 PM) [email or web address]
== END | disposition home or self-care (01) ==
LOC: KCIC MRI 10:41
PROVIDERS: ATTEND Orthopaedic Surgery
DX: M51.17 Intervertebral disc disorders with radiculopathy, lumbosacral region (principal); M48.07 Spinal stenosis, lumbosacral region; M47.897 Other spondylosis, lumbosacral region; M43.5X6 Other recurrent vertebral dislocation, lumbar region; M25.78 Osteophyte, vertebrae; D18.09 Hemangioma of other sites
CPT/HCPCS: 72148

== ENCOUNTER → 2018-09-17 | Outpatient (CLI) | payer BC ==
[~2018-09-17] MED LIST changes: +IOHEXOL 180 MG/ML 10 ML VIAL. ONE; +methylPREDNISolone ACETATE 40 MG/ML VIAL. ONE; +methylPREDNISolone ACETATE 80 MG/ML VIAL. ONE
--- NOTE | 2018-09-17 23:11 | PAIN ---
DATE OF SERVICE: 09/17/2018 INITIAL CONSULTATION FOR PAIN CLINIC CHIEF COMPLAINT: Low back and right lower extremity pain. HISTORY OF PRESENT ILLNESS: This is a 53-year-old female who presents with history of pain in low back and right leg since about May or June of this year, when she was just walking into work one day, without any specific injury or action that she is aware of, as walking, she had some significant pain in the low back and into the right leg, radiating to posterior gluteus, posterior thigh, posterior calf, to the ankle and foot with some numbness and tingling in the toes as well. The patient reports it is now sharp, stabbing, throbbing and shooting, radiating into the right leg, changes during the day, worse with activity, standing, walking and an aching pain across the low back as well. The patient reports it is worse with changing positions, getting up from a seated position or standing to sitting as well as just walking or sitting for a prolonged period. The patient reports it was better when she is sitting or lying down, awakens her from sleep, however, about 2-3 times at night, does not affect her bowel or bladder control, does affect her ability to walk significantly. She is not using any assistive devices. The patient has not had any formal physical therapies or other treatments currently. She do some stretching on her own she reports, but otherwise no formal treatments. The patient has tried Motrin and Tylenol as well as tramadol. Tramadol helps a little bit, but the others do not. The patient reports no symptoms in the left leg, but significant fatigability with walking and standing on the right leg. The patient reports a disability rating from 0-10, 10 being the worst, is a 7 with family and home responsibilities; 6-7 with recreation and social activity; 10 with occupation and sexual behavior; 6 with self-care and 7 with life support activities. The patient did have an MRI scan of the lumbar spine and on comparison of 08/28/2014 film showing now small extrusion extending above the intervertebral disk space and distal right L5-S1 neural foramen and proximal extraforaminal region with increased moderate narrowing of the right neural foramen, greater distally and contact exiting right L5 nerve root. PAST MEDICAL HISTORY: Significant for arthritis, depression, anxiety, cervical cancer, gastroesophageal reflux. PREVIOUS SURGERY: Include hysterectomy in 2003, left knee surgery in 2001, tubal ligation in 1992, left breast cyst in 1979, right bunionectomy in 1999, LASIK of the right eye, cervical anterior diskectomy and fusion, and left total knee in 01/2018. CURRENT MEDICATIONS: Include Celebrex, trazodone, Cymbalta, levothyroxine, gabapentin, nortriptyline, and cyclobenzaprine. ALLERGIES: THE PATIENT IS ALLERGIC TO VICODIN AND DARVOCET, WHICH CAUSES ITCHING. FAMILY HISTORY: Significant for degenerative disk disease, arthritis. SOCIAL HISTORY: The patient does not drink alcohol, does not smoke. She is not using illegal, illicit or recreational drugs. She is , lives with her spouse, lives locally in [place], [place]. REVIEW OF SYSTEMS: The patient's review of systems is positive for those items mentioned in history of present illness. All systems reviewed and otherwise negative. It is complete, full and well documented on the patient's chart. PHYSICAL EXAMINATION: VITAL SIGNS: The patient's blood pressure 117/79, pulse 87, respirations 16, temperature is 98.2 degrees Fahrenheit, height is 5 feet inches, weight is 218 pounds. GENERAL: The patient is awake, alert, oriented, appropriate, very pleasant demeanor. HEENT: Shows normocephalic, atraumatic. Extraocular movements are intact and symmetrical. Oral cavity: Mucous membranes moist and pink. Dentition is intact. NECK: Shows anterior throat supple without palpable lymphadenopathy noted. Swallow reflex is symmetrical. CHEST: Shows normal on inspection. Breath sounds are clear to auscultation bilaterally. HEART: Shows S1, S2 clear. No murmurs auscultated. ABDOMEN: Obese, soft, nontender, nondistended. No palpable organomegaly is noted. No rebound or guarding demonstrated. BACK: Shows spine grossly in the midline, normal-appearing cervical lordotic curvature, thoracic kyphotic curvature and lumbar lordotic curvature. Lumbar paraspinous muscle shows symmetrical on inspection. On palpation shows some moderate tenderness diffusely, but only diffusely without radiation. No tenderness over the sacrum or sacroiliac regions. The patient's back shows good rotational motion both laterally greater than 10 degrees right and left as well as extension greater than 10 degrees, forward flexion 45 degrees, without significant increase in pain. EXTREMITIES: The patient's lower extremities show deep tendon reflexes at 2+ in the right patellar, 1+ left patella, with well-healed surgical scar noted over the left knee and 1+ bilaterally in the tendo calcaneus tendons. Motor exam is strong with dorsiflexion, extension, quadriceps and hamstring flexion rated 5/5 on the left and about 4/5 on the right including quadriceps and hamstring flexion. Peripheral pulses are 1+ posterior tibia. No peripheral edema is noted bilaterally. The patient is able to stand, stand on her toes without significant difficulty or loss of balance, walks with a normal appearing gait, but does appear to favor the right lower extremity very slightly, not using any assistive devices such as canes or walkers to ambulate. SKIN: Shows warm and dry, good turgor. No edema. No sores, rashes or bruising. IMPRESSION: This is a 53-year-old female with: 1. Approximate 4- month history of increasing pain in the low back and right lower extremity in a radicular fashion. 2. MRI scan of lumbar spine as noted. 3. Arthritis. PLAN: Options were discussed with the patient including conservative medical management, physical therapy, interventional techniques and she would like to pursue interventional techniques. We discussed a lumbar epidural steroid injection using description as well as anatomical models to describe the procedure. Risks were then discussed including, but not limited to bleeding, infection, possibility of epidural hematoma, subsequent neurologic compromise, dural puncture, headaches, spinal cord and/or nerve damage, side effects of steroid medication and poor results regarding pain control. The patient understands and wished to proceed. The patient will return to the clinic in approximately 2 weeks for followup, was counseled on return appointment, activity level and side effects to be aware of. DIAGNOSIS: Lumbar radiculopathy with lumbar degenerative disk disease. PROCEDURE: Lumbar epidural steroid injection, translaminar approach at L5-S1 level using C-arm fluoroscopic guidance under sterile prep and drape using local anesthetic. MEDICATION INJECTED: A total of 120 mg Depo-Medrol plus 10 mL of preservative-free normal saline and 2 mL of contrast. CONDITION AT DISCHARGE: Stable. The patient tolerated the procedure well and had no complications. HEATHER FERREIRA MD DR: CURTIS/mely JOB#: [id number] / [id number]
== END ==
LOC: PNCL 10:16
PROVIDERS: ATTEND Anesthesiology
DX: M51.16 Intervertebral disc disorders with radiculopathy, lumbar region (principal); F32.9 Major depressive disorder, single episode, unspecified; F41.9 Anxiety disorder, unspecified; K21.9 Gastro-esophageal reflux disease without esophagitis; Z85.41 Personal history of malignant neoplasm of cervix uteri; Z90.710 Acquired absence of both cervix and uterus; Z98.51 Tubal ligation status; Z96.652 Presence of left artificial knee joint; Z88.1 Allergy status to other antibiotic agents; Z88.8 Allergy status to other drugs, medicaments and biological substances
CPT/HCPCS: 62323; J1030; J1040; Q9965

== ENCOUNTER → 2018-10-01 | Outpatient (CLI) | payer BC ==
--- NOTE | 2018-10-01 14:50 | PAIN ---
DATE OF SERVICE: 10/01/2018 DIAGNOSES: Lumbar radiculopathy with lumbar degenerative disk disease. HISTORY OF PRESENT ILLNESS: The patient is a 53-year-old female who returns for followup status post lumbar epidural steroid injection x 1. The patient reports about 50% improvement in her low back and right lower extremity pain. The patient reports pain is still significant, however, it has been returning, but doing better than she was, increasing distance walking with greater ease and comfort, doing household activities and sleeping better. The patient reports it still can awaken her from sleep at night occasionally, but not every night. The patient reports it is an 8 on a scale of 10 at its worst over the past week, 6 on average and a 4 at its least, right leg, posterior gluteus, posterior thigh, posterior calf, radiating to the anterior lower leg and foot as well. The patient reports it is aching, dull, shooting, stabbing, cramping, tingling, on and off in intensity; worse with walking, standing, change in positions, even if she is on her feet more than about 10-15 minutes. The patient reports no loss of motor function, no bowel or bladder incontinence at this time. PHYSICAL EXAMINATION: VITAL SIGNS: The patient's blood pressure 142/86, pulse 96, respirations 16, temperature is 98.1 degrees Fahrenheit, height is 5 feet 8 inches, weight is 221 pounds. GENERAL: The patient is awake, alert, oriented, appropriate, very pleasant demeanor. HEENT: Shows normocephalic, atraumatic. Extraocular movements intact and symmetrical. Oral cavity: Mucous membranes moist and pink. Dentition is intact. NECK: Shows anterior throat supple without palpable lymphadenopathy noted. Swallow reflex is symmetrical. CHEST: Shows normal on inspection. Breath sounds clear to auscultation bilaterally. HEART: Shows S1, S2 clear. No murmurs auscultated. ABDOMEN: Soft, nontender, nondistended. No palpable organomegaly is noted. No rebound or guarding demonstrated. BACK: Shows spine grossly in the midline. Normal appearing thoracic kyphosis and lumbar lordotic curvature. Lumbar paraspinous musculature shows symmetrical on inspection, with palpation shows some moderate tenderness diffusely bilaterally, but only diffusely without radiation. EXTREMITIES: The patient's lower extremity deep tendon reflexes 1+ in the patellar and tendo calcaneus tendons on the left and 2+ on the right. Motor exam is approximately 4 on a scale of 5 on the right and 5/5 on the left. Peripheral pulses are 1+ posterior tibia. No peripheral edema is noted bilaterally. Options were discussed with the patient. The patient's old chart was reviewed as her current medication regimen and updated. Current review of systems is updated today as well. We will proceed with a second in the series of lumbar epidural steroid injection today with fluoroscopic guidance. Risks were again discussed including, but not limited to bleeding, infection, possibility of epidural hematoma, subsequent neurological compromise, dural puncture, headaches, spinal cord and/or nerve damage, side effects of steroid medication and poor results regarding pain control. The patient understands and wished to proceed. The patient will return to clinic in approximately two weeks for followup, was counseled on return appointment, activity level and side effects to be aware of. DIAGNOSES: Lumbar radiculopathy with lumbar degenerative disk disease. PROCEDURE: Lumbar epidural steroid injection, translaminar approach, L5-S1 level using C-arm fluoroscopic guidance under sterile prep and drape using local anesthetic. MEDICATIONS INJECTED: A total of 120 mg Depo-Medrol plus 10 mL preservative-free normal saline and 2 mL of contrast. CONDITION AT DISCHARGE: Stable. The patient tolerated procedure well, had no complications. HEATHER FERREIRA MD DR: CURTIS/mely JOB#: [id number] / [id number]
== END ==
LOC: PNCL 08:30
PROVIDERS: ATTEND Anesthesiology
DX: M51.16 Intervertebral disc disorders with radiculopathy, lumbar region (principal)
CPT/HCPCS: 62323; J1030; J1040; Q9965

== ENCOUNTER → 2018-10-24 | Outpatient (CLI) | payer BC ==
--- NOTE | 2018-10-25 03:51 | PAIN ---
DATE OF SERVICE: 10/24/2018 PROGRESS NOTE FOR PAIN CLINIC DIAGNOSES: Lumbar radiculopathy with lumbar degenerative disk disease. HISTORY OF PRESENT ILLNESS: The patient is a 53-year-old female who returns for followup status post lumbar epidural steroid injection x 2. The patient reports about 60% improvement after last injection, still pain in the low back, right lower extremity, but much better with walking and increased better distances, she is walking daily, doing activities at home as well. She has been off work, still I would like to return to work. The patient reports pain is still in the low back, right posterior gluteus, posterior thigh, posterior calf and top of the foot on the right side. The patient reports it is aching, shooting, radiating at times, on and off most times. The patient reports it is a 6 on a scale 10 at its worst in the past week, 4 on average, 2 at its least and is a 4 today. The patient reports no new motor or sensory deficits. No new bowel or bladder incontinence. PHYSICAL EXAMINATION: VITAL SIGNS: The patient's blood pressure 107/66, pulse 70, respirations 18 and temperature 99.0 degrees Fahrenheit. Height is 5 feet 8 inches, weighs 220 pounds. GENERAL: The patient is awake, alert, oriented, appropriate and very pleasant demeanor. HEENT: Head shows normocephalic, atraumatic. Extraocular movements are intact and symmetrical. Oral cavity: Mucous membranes moist and pink. NECK: Shows anterior throat supple. CHEST: Shows normal on inspection. Breath sounds clear bilaterally. HEART: Shows S1, S2 clear. No murmurs auscultated. ABDOMEN: Soft, nontender and nondistended. BACK: Shows spine grossly in the midline, slight tenderness in the lumbar paraspinous muscles with palpation, but normal on inspection with symmetrical paraspinous musculature. No radiation of pain demonstrated. The patient has good rotational motion of lumbar spine, both laterally as well as extension and flexion without significant difficulty or pain reported. EXTREMITIES: Lower extremities show deep tendon reflexes 1+ in the patellar on the left and 2+ on the right, tendo-calcaneus tendons are 1+ bilaterally. Motor exam is strong with 5/5 dorsiflexion, extension on the left and 4/5 on the right. Peripheral pulses are 1+ posterior tibial. No peripheral edema is noted bilaterally. Options were discussed with the patient. The patient's old chart was reviewed as well as her current medication regimen updated. Current review of systems updated today as well. We will proceed with a lumbar epidural steroid injection today is the third in the series. Risks were again discussed including, but not limited to bleeding, infection, possibility of epidural hematoma, subsequent neurological compromise, dural puncture, headaches, spinal cord and/or nerve damage, side effects of steroid medication and poor results regarding pain control. The patient understands and wished to proceed. The patient will return to clinic in approximately 2 weeks for followup. She was counseled as to return appointment, activity level and side effects to be aware of. The patient also requests a note for work that she can return without restriction. We discussed this in some detail today. We will make this available for her in 11/01/2018 and she states that she must get back to work and she would like to go back at full duty without restrictions, we will make that note per her request. Again, cautioned her as to activity level and is being cautious with her back with lifting, standing, etc. The patient will return to clinic as scheduled. DIAGNOSIS: Lumbar radiculopathy with lumbar degenerative disk disease. PROCEDURE: Lumbar epidural steroid injection at L5-S1 level using C-arm fluoroscopic guidance under sterile prep and drape using local anesthetic. MEDICATION INJECTED: A total of 120 mg Depo-Medrol plus 10 mL of preservative-free normal saline and 2 mL of contrast. CONDITION AT DISCHARGE: Stable. The patient tolerated the procedure well and had no complications. HEATHER FERREIRA MD DR: CURTIS/mely JOB#: [id number] / [id number]
== END ==
LOC: PNCL 09:15
PROVIDERS: ATTEND Anesthesiology
DX: M51.16 Intervertebral disc disorders with radiculopathy, lumbar region (principal)
CPT/HCPCS: 62323; J1030; J1040; Q9965

== ENCOUNTER → 2018-11-05 | Outpatient (CLI) | payer BC ==
[~2018-11-05] MED LIST changes: -IOHEXOL 180 MG/ML 10 ML VIAL. ONE; -methylPREDNISolone ACETATE 40 MG/ML VIAL. ONE; -methylPREDNISolone ACETATE 80 MG/ML VIAL. ONE
--- NOTE | 2018-11-05 15:12 | RAD ---
EXAM: Pelvic sonogram. HISTORY: Pelvic pain. TECHNIQUE: Transabdominal and transvaginal sonographic imaging of the pelvis was performed. COMPARISON: None. FINDINGS: The uterus is surgically absent. The right ovary measures 2.7 x 2.0 x 3.6 cm. The left ovary measures 1.7 x 1.7 x 1.0 cm. There is normal blood flow within both ovaries. There is a heterogeneous hypoechoic lesion within the right ovary measuring 2.1 cm. This demonstrates peripheral blood flow. There is no pelvic free fluid. IMPRESSION: 1. 2.1 cm heterogeneous hypoechoic lesion within the right ovary, the appearance of which favors a hemorrhagic cyst. There is no internal blood flow to suggest a solid lesion component. However, given the patient age, short-term sonographic follow-up is recommended to confirm stability or resolution. 2. Surgically absent uterus. Electronically signed by: Mine Whyte MD (11/05/2018 3:08 PM) [id number]
== END | disposition home or self-care (01) ==
LOC: US 11:57
PROVIDERS: ATTEND Family Medicine
DX: N83.9 Noninflammatory disorder of ovary, fallopian tube and broad ligament, unspecified (principal); Z90.710 Acquired absence of both cervix and uterus
CPT/HCPCS: 76830; 76856

== ENCOUNTER → 2019-01-14 | Outpatient (CLI) | payer BC ==
[~2019-01-14] MED LIST changes: +OMEP40CA45 PO; -OMEP40CA5 PO
--- NOTE | 2019-01-14 16:53 | RAD ---
Examination: PELVIS W/TV History: Right ovarian mass follow-up Comparison/Correlation: 11/05/2018 pelvic ultrasound with transvaginal Findings: Transabdominal and transvaginal pelvic ultrasound exam was performed. Transvaginal technique was utilized to better assess the adnexal structures. Hysterectomy noted. Right ovary measures 2.6 cm 1.6 cm x 2.9 cm. Multiple right adnexal follicles are present and small in size. The dominant right adnexal complex hypoechoic lesion has notably decreased in size or resolved. No pelvic free fluid. No new mass. No pelvic free fluid. Normal right ovary spectral flow and color Doppler imaging noted. Left ovary is not seen. Impression: No suspicious right adnexal mass. Electronically signed by: Som Tellez MD (01/14/2019 4:50 PM) [facility]
== END | disposition home or self-care (01) ==
LOC: US 13:12
PROVIDERS: ATTEND Family Medicine
DX: N85.8 Other specified noninflammatory disorders of uterus (principal); Z90.710 Acquired absence of both cervix and uterus
CPT/HCPCS: 76830; 76856